=== PATIENT | male | born 1970 | race Caucasian/White ===

== ENCOUNTER 2021-06-10 10:12 | Emergency (ER) | payer SELFPAY ==
[~2021-06-10] VITALS: Ht 154.9 cm; Wt 69.4 kg
[2021-06-10 10:17] VITALS: BP 175/101
--- NOTE | 2021-06-10 10:28 | NUR ---
XRAY AT PATIENT BEDSIDE
[2021-06-10] MEDS ORDERED: NACL 0.9% 1,000 ML IV ONE (10:45)
[2021-06-10] MEDS ORDERED: MORPHINE SULFATE 4 MG/ML SYR IVP ONE (10:45)
--- NOTE | 2021-06-10 11:00 | NUR ---
51 Y/O MALE BIB SELF C/O CHEST PAIN 910 RADIATING TO THE BACK X1 WEEK, WITH INCREASED INCIDENCE OF PAIN WITHIN 3 DAYS. DENIES FALL, DENIES NVD. RESPIRATIONS EVEN AND UNLABORED. PMH; DENIES NKA
--- NOTE | 2021-06-10 11:07 | NUR ---
HANDED BLOOD SAMPLES TO RAFAL RAZA TECH
--- NOTE | 2021-06-10 11:13 | NUR ---
PT WHEELED TO CT [facility]IA [facility]
--- NOTE | 2021-06-10 11:25 | NUR ---
PT RETURNED FROM CT
--- NOTE | 2021-06-10 11:29 | NUR ---
DAVIDE WALKED TO LAB, HANDED TO HELENA
--- NOTE | 2021-06-10 12:04 | NUR ---
PT REASSESSED STATED PAIN FROM 11/14 NOW 05/14
[2021-06-10 12:05] VITALS: BP 164/102
[2021-06-10 12:42] LABS: BASOPHILS % (AUTO) 0.5 % (0.0-2.0); EOSINOPHILS # (AUTO) 0.1 K/uL (0-0.4); EOSINOPHILS % (AUTO) 1.2 % (0.0-4.0); HEMATOCRIT 41.1 % (36-52); LYMPHOCYTES # (AUTO) 1.3 K/uL (2.0-11.5); LYMPHOCYTES % (AUTO) 17.4 % (20.5-51.1); MEAN CORPUSCULAR HEMOGLOBIN 29 pg (27-31); MEAN CORPUSCULAR HGB CONC 34 g/dL (33-37); MEAN CORPUSCULAR VOLUME 84.1 fL (80-94); MONOCYTES # (AUTO) 0.6 K/uL (0.8-1.0); MONOCYTES % (AUTO) 7.8 % (1.7-9.3); NEUTROPHILS # (AUTO) 5.6 K/uL (1.8-7.7); NEUTROPHILS % (AUTO) 73.1 % (42.2-75.2); PLATELET COUNT (AUTO) 247 K/uL (140-450); RED BLOOD CELL COUNT(AUTO) 4.89 MIL/uL (4.20-6.10); RED CELL DISTRIBUTION WIDTH 13.2 % (11.6-13.7); WHITE BLOOD COUNT (AUTO) 7.7 K/uL (4.8-10.8)
[2021-06-10 12:45] LABS: ALBUMIN 3.8 g/dL (3.4-5.0); ANION GAP 11.6 (8-16); CARBON DIOXIDE 29.3 mmol/L (21-32); CREATININE 0.8 mg/dL (0.6-1.3); TOTAL BILIRUBIN 0.4 mg/dL (0.0-1.0)
[2021-06-10 12:47] LABS: POTASSIUM 2.9 mmol/L (3.5-5.1)
[2021-06-10] MEDS ORDERED: FAMO-90 PO (12:53)
[2021-06-10] MEDS ORDERED: POTASSIUM CHLORIDE 10 MEQ TABER PO ONE (13:00)
[2021-06-10] MEDS ORDERED: FAMOTIDINE 20 MG TAB PO ONE (13:00)
--- NOTE | 2021-06-10 13:12 | NUR ---
PT AMBULATED TO BATHROOM WITH STEADY GAIT
--- NOTE | 2021-06-10 13:27 | NUR ---
Patient discharged with v/s stable. Written and verbal after care instructions ABOUT ABDOMINAL PAIN given and explained. Patient alert, oriented and verbalized understanding of instructions. Ambulatory with steady gait. All questions addressed prior to discharge. ID band removed. Patient advised to follow up with PMD. Rx of PEPCID given. Patient educated on indication of medication including possible reaction and side effects. Opportunity to ask questions provided and answered.
== END 2021-06-10 13:27 | disposition home or self-care (01) ==
LOC: MED 10:12
DX: R10.11 Right upper quadrant pain (principal); Z20.822 Contact with and (suspected) exposure to COVID-19; R10.31 Right lower quadrant pain; R10.13 Epigastric pain; Z79.899 Other long term (current) drug therapy
CPT/HCPCS: 36415; 71045; 74176; 80053; 83690; 83880; 84484; 85025; 87426; 93005; 96361; 96374; 99285; J2270; J7030